=== PATIENT | male | born 1990 | race Caucasian/White ===

== ENCOUNTER 2021-03-29 16:12 | Emergency (ER) | payer OTHER ==
[~2021-03-29] VITALS: Ht 180.3 cm; Wt 81.6 kg
[2021-03-29] MEDS ORDERED: MORGIDOX100 MG PO (19:22)
== END 2021-03-29 19:29 | disposition home or self-care (01) ==
LOC: ER 16:12
DX: B34.9 Viral infection, unspecified (principal); Z03.818 Encounter for observation for suspected exposure to other biological agents ruled out; R50.9 Fever, unspecified